=== PATIENT | male | born 1990 | race Caucasian/White ===

== ENCOUNTER 2024-11-14 20:29 | Emergency (ER) | payer OTHER ==
[~2024-11-14] VITALS: Ht 177.8 cm; Wt 70.0 kg
[2024-11-14 20:41] VITALS: O2SAT 100
[2024-11-14 22:57] LABS: BASOPHILS % 0.2 % (0.0-2.0); EOSINOPHILS % 0.9 % (0.0-5.0); HEMATOCRIT. 44.9 % (42.0-52.0); HEMOGLOBIN. 14.8 g/dL (14.0-18.0); LYMPHOCYTES % 28.3 % (20.0-50.0); MEAN CORPUSCULAR HEMOGLOBIN 30.4 pg (28.0-32.0); MEAN CORPUSCULAR HGB CONC 33.1 g/dL (31.0-37.0); MEAN PLATELET VOLUME 7.6 fl (7.4-10.4); MONOCYTES % 8.5 % (2.0-8.0); NEUTROPHILS % 62.1 % (40.0-76.0); PLATELET 328 x1000/uL (130-400); RED BLOOD CELL COUNT 4.88 mill/uL (4.7-6.1); RED CELL DISTRIBUTION WIDTH 15.2 % (11.6-14.6); WHITE BLOOD COUNT 9.9 x1000/uL (4.5-11.0)
[2024-11-14] MEDS: SODIUM CHLORIDE 0.9% 1,000 ML IV ONE (23:00)
[2024-11-14] MEDS: ACETAMINOPHEN 325MG TABLET PO ONE (23:00)
[2024-11-14] MEDS: ONDANSETRON HCL 4MG/2ML INJ IV ONE (23:00)
[2024-11-14 23:08] LABS: CHLORIDE 100 mEq/L (98-107); POTASSIUM 3.9 mEq/L (3.5-5.1); SODIUM 137 mEq/L (136-145)
[2024-11-14 23:09] LABS: CALCIUM 9.2 mg/dL (8.7-10.4); CARBON DIOXIDE 27 mEq/L (21-32)
[2024-11-14 23:14] LABS: CREATININE 1.1 mg/dL (0.6-1.3); GLUCOSE 81 mg/dL (70-105); UREA NITROGEN BLOOD 15 mg/dL (9-23)
[2024-11-14 23:15] LABS: ETHANOL BLOOD 29 mg/dL (<10)
[2024-11-15 02:04] VITALS: BP 105/67; PULSE 100; RESP 12; TEMP 36.9; O2SAT 100
== END 2024-11-15 02:05 | disposition home or self-care (01) ==
LOC: ER 20:29
DX: F10.129 Alcohol abuse with intoxication, unspecified (principal); R51.9 Headache, unspecified; Y90.9 Presence of alcohol in blood, level not specified
CPT/HCPCS: 80048; 80320; 85025; 36415; 70450; 96361; 96374; 99285; J2405; J7030; G0480